=== PATIENT | female | born 1970 | race Two or more races ===

== ENCOUNTER 2017-11-16 15:52 | Emergency (ER) | payer OTHER ==
[~2017-11-16] VITALS: Ht 162.6 cm; Wt 126.1 kg
== END 2017-11-16 18:06 | disposition home or self-care (01) ==
LOC: ER 15:52
DX: G44.209 Tension-type headache, unspecified, not intractable (principal); F06.4 Anxiety disorder due to known physiological condition

== ENCOUNTER → 2017-12-25 | Emergency (ER) | payer OTHER ==
[~2017-12-25] VITALS: Ht 162.6 cm; Wt 127.0 kg
[~2017-12-25] MED LIST: SYNTHROID150 MCG
== END | disposition home or self-care (01) ==
LOC: ER 12:55
DX: B34.9 Viral infection, unspecified (principal)

== ENCOUNTER → 2017-12-27 | Outpatient (CLI) | payer OTHER | END | disposition home or self-care (01) | LOC: SONOGRAMA 09:44 | DX: E04.1 Nontoxic single thyroid nodule (principal) ==

== ENCOUNTER 2019-02-12 13:08 | Emergency (ER) | payer OTHER ==
[~2019-02-12] VITALS: Ht 162.6 cm; Wt 131.5 kg
== END 2019-02-12 17:00 | disposition home or self-care (01) ==
LOC: ER 13:08
DX: I16.0 Hypertensive urgency (principal); I10 Essential (primary) hypertension

== ENCOUNTER 2019-10-24 15:16 | Emergency (ER) | payer OTHER ==
[~2019-10-24] VITALS: Ht 162.6 cm; Wt 122.5 kg
== END 2019-10-24 22:36 | disposition home or self-care (01) ==
LOC: ER 15:16 → EMR PED 15:16 → ER 16:03
DX: J45.998 Other asthma (principal)

== ENCOUNTER 2021-01-19 10:46 | Outpatient (CLI) | payer OTHER | END 2021-01-19 11:01 | disposition home or self-care (01) | LOC: SONOGRAMA 10:46 | PROVIDERS: ATTEND Pathology Anatomic Pathology & Clinical Pathology | DX: E04.1 Nontoxic single thyroid nodule (principal) ==